=== PATIENT | female | born 2000 | race Native Hawaiian/Other Pacific Islander ===

== ENCOUNTER 2021-03-31 20:40 | Emergency (ER) | payer MEDICAID ==
--- NOTE | 2021-03-31 21:07 | ED Physician Documentation ---
PD HPI NVD - Stated complaint Stated Complaint: VOMITING BLOOD - Chief complaint Chief Complaint: Abd Pain - History obtained from History obtained from: Patient - History of Present Illness Timing - onset: How many weeks ago (2 weeks) Timing - details: Abrupt onset, Intermittant Pain level max: 0 Pain level now: 0 Associated symptoms: Hematemesis. No: Fever, Abdominal pain, Melena, Hematochezia, Loss of appetite Similar symptoms before: Has not had sx before Recently seen: Not recently seen - Additonal information Additional information: c/o 2 weeks of nausea and vomiting, intermittent and tolerating most PO. Her chief concern is that since yesterday she has noticed blood in vomitus . she describes small streaks of blood and has not noticed clots. denies any pain. denies fever Review of Systems Constitutional: reports: Reviewed and negative Cardiac: reports: Reviewed and negative Respiratory: reports: Reviewed and negative GI: reports: Nausea, Vomiting, Hematemesis. denies: Abdominal Pain, Diarrhea, Bloody / black stool : reports: LMP (unsure, but approximately 3 months ago). denies: Dysuria, Frequency, Vaginal bleeding PD PAST MEDICAL HISTORY - Past Medical History Past Medical History: No - Past Surgical History Past Surgical History: No - Present Medications Home Medications: Ambulatory Orders Medication Instructions Recorded Confirmed Metoclopramide [Reglan] 10 mg PO Q6H PRN #14 tablet 04/01/21 - Allergies Allergies/Adverse Reactions: Allergies Allergy/AdvReac Type Severity Reaction Status Date / Time No Known Drug Allergies Allergy Verified 03/31/21 20:47 PD ED PE NORMAL - Vitals Vital signs reviewed: Yes - General General: Alert and oriented X 3, No acute distress, Well developed/nourished - HEENT HEENT: Moist mucous membranes - Cardiac Cardiac: RRR, No murmur - Respiratory Respiratory: No respiratory distress, Clear bilaterally - Abdomen Abdomen: Soft, Non tender, Non distended - Back Back: No CVA TTP Results - Vitals Vitals: Vital Signs - 24 hr 03/31/21 03/31/21 04/01/21 20:42 22:55 00:35 Temperature 36.5 C Heart Rate 94 67 71 Respiratory 16 18 18 Rate Blood Pressure 127/80 104/67 125/78 O2 Saturation 99 100 100 Oxygen O2 Source Room air - Labs Labs: Laboratory Tests 1103/31/21 03/31/21 21:00 21:04 21:04 WBC 10.1 RBC 4.42 Hgb 13.0 Hct 38.5 MCV 87.1 MCH 29.4 MCHC 33.8 RDW 12.4 Plt Count 419 MPV 8.4 Neut # (Auto) 6.7 H Lymph # (Auto) 2.5 [place] # (Auto) 0.8 Eos # (Auto) 0.1 Baso # (Auto) 0.0 Absolute Nucleated RBC 0.00 Nucleated RBC % 0.0 Sodium 133 L Potassium 3.2 L Chloride 98 L Carbon Dioxide 25 Anion Gap 10.0 BUN 6 Creatinine 0.6 Estimated GFR (MDRD) 126 Glucose 128 H Calcium 9.4 Total Bilirubin 0.5 AST 23 ALT 25 Alkaline Phosphatase 57 Total Protein 8.2 Albumin 4.3 Globulin 3.9 Albumin/Globulin Ratio 1.1 Lipase 36 HCG, Quant Urine Color YELLOW Urine Clarity CLEAR Urine pH 6.0 Ur Specific Mayer <=1.005 Urine Protein NEGATIVE Urine Glucose (UA) NEGATIVE Urine Ketones NEGATIVE Urine Occult Blood MODERATE H Urine Nitrite NEGATIVE Urine Bilirubin NEGATIVE Urine Urobilinogen 2 H Ur Leukocyte Esterase SMALL H Urine RBC 0-5 Urine WBC 0-3 Ur Squamous Epith Cells MOD Squamous H Urine Bacteria Rare Ur Microscopic Review INDICATED Urine Culture Comments NOT INDICATED Urine HCG, Qual POSITIVE 03/31/21 21:04 WBC RBC Hgb Hct MCV MCH MCHC RDW Plt Count MPV Neut # (Auto) Lymph # (Auto) [place] # (Auto) Eos # (Auto) Baso # (Auto) Absolute Nucleated RBC Nucleated RBC % Sodium Potassium Chloride Carbon Dioxide Anion Gap BUN Creatinine Estimated GFR (MDRD) Glucose Calcium Total Bilirubin AST ALT Alkaline Phosphatase Total Protein Albumin Globulin Albumin/Globulin Ratio Lipase HCG, Quant 684160.00 Urine Color Urine Clarity Urine pH Ur Specific Mayer Urine Protein Urine Glucose (UA) Urine Ketones Urine Occult Blood Urine Nitrite Urine Bilirubin Urine Urobilinogen Ur Leukocyte Esterase Urine RBC Urine WBC Ur Squamous Epith Cells Urine Bacteria Ur Microscopic Review Urine Culture Comments Urine HCG, Qual - Rads (name of study) ob first trimester US Radiology: Prelim report reviewed, See rad report PD MEDICAL DECISION MAKING - ED course Complexity details: reviewed results, re-evaluated patient, considered differential, d/w patient ED course: Patient has positive urine HCG. she was unaware she was , although when I asked her on initial H+P she said it was possible but she thought it unlikely. I then ask LMP and she says approximately 3 months. She had one previous that was uncomplicated and went to full term and delivery. Tonights US shows approximately 11w3d gestation; slightly widened internal cervical os but normal cervical length. I discussed the case including US findings with Dr. Rodas (director of solutions architecture storeroom attendant for [facility]); patient is appropriate and safe for d/c, advises follow up within 1-2 weeks in outpatient setting. I discussed this with patient and she is comfortable with this plan. Patient reports resolution of her nausea after IV fluids and IV reglan. Her hematemsis is most likely due to gabino-edwards tear(s) or gastritis. She is afebrile and nontender and her blood tests have no concerning findings Departure - Departure Disposition: 01 Home, Self Care Clinical Impression: Vomiting during Condition: Good Instructions: ED Preg Morning Sickness Follow-Up: John Rodas MD [Provider Admit Priv/Credential] - Within 1 week Prescriptions: Metoclopramide [Reglan] 10 mg PO Q6H PRN #14 tablet PRN Reason: Nausea / Vomiting Comments: As we discussed, the ultrasound tonight includes findings that might represent the cervix being slightly open; this is abnormal, but the findings are subtle and thus it is unclear at this time whether the cervix is open or not. Further testing at this time is not indicated, but you need to follow up with storeroom attendant for reevaluation. In follow-up, you will likely undergo a repeat ultrasound that can then be used to see if this finding is still there or resolved, or if it has worsened. In the meantime, if your symptoms worsen (vomiting that is uncontrolled by the prescribed medication, increasing amounts of blood in vomitus), or if you develop new signs/symptoms such as pelvic cramping, vaginal bleeding, or fevers, return to the emergency department for reevaluation. Your ultrasound does confirm that you are , and the measurements correlate with 11 weeks and 3 days with good heart rate . I discussed your case with the on-call storeroom attendant and the above are her recommendations, as well as pelvic rest (no intercourse) until your storeroom attendant instructs otherwise A prescription for anti-nausea medication (metoclopramide) has been electronically submitted to [facility] pharmacy in [place] Discharge Date/Time: 04/01/21 00:36
[2021-03-31 21:11] LABS: BILIRUBIN,URINE NEGATIVE (NEGATIVE); GLUCOSE, URINE (UA) NEGATIVE (NEGATIVE); KETONES,URINE (UA) NEGATIVE (NEGATIVE); LEUKOCYTE ESTERASE, URINE SMALL (NEGATIVE); NITRITE,URINE NEGATIVE (NEGATIVE); OCCULT BLOOD,URINE MODERATE (NEGATIVE); PROTEIN,URINE NEGATIVE (NEGATIVE); UROBILINOGEN,URINE 2 E.U./dL (NORMAL)
[2021-03-31 21:12] LABS: BASOPHILS % (AUTO) 0.4 %; EOSINOPHILS # (AUTO) 0.1 10^3/uL (0.0-0.7); EOSINOPHILS % (AUTO) 0.8 %; HCT - HEMATOCRIT 38.5 % (37.0-47.0); LYMPHOCYTES # (AUTO) 2.5 10^3/uL (1.5-3.5); LYMPHOCYTES % (AUTO) 24.6 %; MEAN CORPUSCULAR HEMOGLOBIN 29.4 pg (27.0-31.0); MEAN CORPUSCULAR HGB CONC 33.8 g/dL (32.0-36.0); MEAN CORPUSCULAR VOLUME 87.1 fL (81.0-99.0); MEAN PLATELET VOLUME 8.4 fL (7.9-10.8); MONOCYTES # (AUTO) 0.8 10^3/uL (0.0-1.0); MONOCYTES % (AUTO) 7.5 %; NEUTROPHILS # (AUTO) 6.7 10^3/uL (1.5-6.6); NEUTROPHILS % (AUTO) 66.5 %; PLT - PLATELET COUNT 419 10^3/uL (130-450); RED BLOOD COUNT 4.42 10^6/uL (4.20-5.40); RED CELL DISTRIBUTION WIDTH 12.4 % (12.0-15.0); WHITE BLOOD COUNT 10.1 x10^3/uL (4.8-10.8)
[2021-03-31 21:16] LABS: CLARITY,URINE CLEAR (CLEAR); HCG UR QUAL POSITIVE
[2021-03-31] MEDS ORDERED: SODIUM CHLORIDE 0.9% 1,000 ML IV STA (21:19)
[2021-03-31] MEDS ORDERED: METOCLOPRAMIDE 10 MG/2 ML VIAL IVP STA (21:20)
[2021-03-31 21:23] LABS: BACTERIA,URINE Rare /HPF (None Seen); RBC,URINE 0-5 /HPF (0-5); SQUAMOUS EPITHELIAL CELL,UR MOD Squamous (<= Few); WBC,URINE 0-3 /HPF (0-5)
[2021-03-31 21:26] LABS: ALBUMIN 4.3 g/dL (3.2-5.5); ALBUMIN/GLOBULIN RATIO 1.1 (1.0-2.2); BILIRUBIN,TOTAL 0.5 mg/dL (0.2-1.0); CALCIUM 9.4 mg/dL (8.5-10.3); CREATININE 0.6 mg/dL (0.4-1.0); POTASSIUM 3.2 mmol/L (3.5-5.0); TOTAL PROTEIN 8.2 g/dL (6.7-8.2)
--- NOTE | 2021-03-31 23:22 | Ultrasound Report ---
PROCEDURE: OB First Trimester INDICATIONS: n/v, abdominal pain, OUTSIDE/PRIOR DATING DATA: Last menstrual period (LMP): Unknown. LMP-based estimated date of delivery (MARISSA): Not applicable. First dating scan (date and location): 03/31/2021. Estimated date of delivery (MARISSA) from first dating scan: 10/17/2021. The below data below was generated using the sonographic MARISSA of 10/17/2021 TECHNIQUE: Real-time scanning was performed of the fetus and maternal pelvic organs, with image documentation. COMPARISON: None. FINDINGS: Embryo: Single living intrauterine gestation with an estimated sonographic gestational age of approx imately 11 weeks and 3 days based off crown-rump length measurement of approximately 4.6 cm. No perig estational hemorrhage visualized. Heart rate: 164 bpm. The maternal cervix measures 4.5 cm in length. There appears to be fluid within the length of the cer vical canal and widening of the cervical canal measuring approximately 0.55 cm in diameter. No defini te funneling identified at the internal cervical os. Measurement variability in dating: +/- 4 weeks by LMP, +/- 7 days by mean sac diameter (use before 6 weeks gestation if crown-rump length not able to be measured), +/- 5 days by crown-rump length (6-12 weeks gestation). Maternal organs: Ovaries appear unremarkable. IMPRESSION: 1. Single living intrauterine gestation with estimated sonographic gestational age of approximately 1 1 weeks and 3 days based off crown-rump length measurement. Estimated date of delivery is approximate ly 10/17/2021. 2. Possible widening of the internal cervical os to approximately 0.55 cm in diameter extending the l ength of an otherwise normal cervical length of 4.5 cm. This may represent fluid within a mildly dila venkata cervical canal. No definite funneling of the internal cervical os seen. Findings may represent ea rly cervical insufficiency although prominent hypoechoic cervical canal can have a similar appearance , especially in the setting of normal cervical length. Recommend obstetric consultation and close cli nical and imaging surveillance. Findings were discussed with Dr. Egan at 2317hrs. Reviewed by: Anselmo Campos MD on 03/31/2021 11:21 PM PST Approved by: Anselmo Campos MD on 03/31/2021 11:21 PM PST Station ID: [id number]
[2021-04-01 00:36] VITALS: BP 125/78
== END 2021-04-01 00:36 | disposition home or self-care (01) ==
LOC: ED 20:40
DX: O21.9 Vomiting of pregnancy, unspecified (principal); K92.0 Hematemesis; Z3A.11 11 weeks gestation of pregnancy
CPT/HCPCS: 36415; 76801; 80053; 81001; 81025; 83690; 84702; 85025; 96374; 99284; J2765; 81003; 87086